=== PATIENT | male | born 1965 | race Caucasian/White ===

== ENCOUNTER 2017-11-07 14:58 | Emergency (ER) | payer OTHER ==
[~2017-11-07] VITALS: Ht 180.3 cm; Wt 101.4 kg
[~2017-11-07 14:58] MED LIST: ADVIL,NUPRIN,M200 MG PO; FLEXERIL10 MG PO; KEFLEX500 MG PO; LISINOPRIL10 MG PO; MOTRIN800 MG PO; PERCOCET 5/31 TABLET PO; TRAMADOL HCL50 MG PO; TYLENOL PM1 CAPLET PO; VALIUM5 MG PO; ZOLOFT100 MG PO; ZYRTEC10 M3 PO
[2017-11-07 17:16] LABS: HEMATOCRIT 44.1 % (38.0-50.0); HEMOGLOBIN 15.8 G/DL (12.5-16.6); MCH 33.8 PG (29.0-34.0); MCHC 35.8 G/DL (30.0-36.0); MCV 94.2 FL (86-99); PLATELET COUNT 206 K/uL (156-360); RBC DIS.WIDTH-CV 11.9 % (11.8-14.6); RBC DIS.WIDTH-SD 40.9 % (39-53); RED BLOOD COUNT 4.68 M/uL (4.00-5.50); WHITE BLOOD COUNT 8.1 K/uL (4.1-10.2)
[2017-11-07 17:17] LABS: INTER. NORMALIZED RATIO 0.9
[2017-11-07 17:19] LABS: ALBUMIN 4.2 g/dL (3.2-4.8)
[2017-11-07 17:20] LABS: CHLORIDE 107 mEq/L (99-109); PTT 29.2 SEC (25-37); SODIUM 139 mEq/L (136-147)
[2017-11-07 17:22] LABS: GLUCOSE 94 mg/dL (70-99); TOTAL PROTEIN 6.6 g/dL (6.4-8.3)
[2017-11-07 17:24] LABS: TOTAL BILIRUBIN 0.4 mg/dL (0.0-1.0)
[2017-11-07 17:25] LABS: ALKALINE PHOSPHATASE 64 IU/L (3-129)
[2017-11-07 17:26] LABS: CREATININE 0.9 mg/dL (0.6-1.3); GFR ESTIMATE (CALCULATED) > 59 mL/min/ (58.99-99999)
[2017-11-07 17:27] LABS: AST (GOT) 18 IU/L (2-34); UREA NITROGEN (BUN) 15 mg/dL (9-23)
[2017-11-07 17:28] LABS: ALT (GPT) 24 IU/L (3-49)
[2017-11-07] MEDS ORDERED: ELIQUIS5 M1 PO (19:52)
[2017-11-07 20:38] VITALS: BP 121/75
== END 2017-11-07 20:39 | disposition home or self-care (01) ==
LOC: EME 14:58
PROVIDERS: Nurse Practitioner Family
DX: I82.412 Acute embolism and thrombosis of left femoral vein (principal); I10 Essential (primary) hypertension; Z86.718 Personal history of other venous thrombosis and embolism; Z86.711 Personal history of pulmonary embolism; Z88.5 Allergy status to narcotic agent
CPT/HCPCS: 71275; 80053; 85027; 85610; 85730; 93005; 93971; 99281; 99284